=== PATIENT | male | born 1980 | race Caucasian/White ===

== ENCOUNTER 2017-03-21 22:43 | Observation (INO) | payer MEDICAID, OTHER ==
[2017-03-21] MEDS ORDERED: ASPIRIN 81 MG CHEW PO STA (23:33)
[2017-03-21] MEDS ORDERED: MAG HYDROX/AL HYDROX/SIMETH 30 ML, HYOSCYAMINE ELIXIR 10 ML, CIMETIDINE HCL 300 MG, LID... PO STA ×4 (23:33)
--- NOTE | 2017-03-21 23:37 | ED ---
Chest Pain HPI - General Chief Complaint: Chest Pain Stated Complaint: Chest Pain Time Seen by Provider: 03/21/17 22:54 Source: patient Mode of arrival: ambulatory Limitations: no limitations - History of Present Illness Initial Comments: This patient is a 37-year-old man who presents to be evaluated for shortness of breath and substernal pains. The patient states that the symptoms started yesterday around 9 AM, when he was sitting and drinking coffee. He noticed that he felt a little short of breath. Shortly after he noticed he was having some burning substernal pains. Patient did try to lie down and see if things would improve, but states that he felt the pain worsened when he was lying supine. He got up and did some things from and also including mowing the lawn which did seem to help. He states the pains would continue to come and go. Tonight when he was lying down for bed things seemed to worsen so he came here to be evaluated. The patient does state that his father had a heart attack at the age of 45. Patient states that he does smoke usually half pack of cigarettes per day. Denies associated diaphoresis, nausea or vomiting, lightheadedness, palpitations or syncope. MD Complaint: chest pain Onset/Timin -: hour(s) Onset: during rest Pain Location: substernal Pain Radiation: back Severity: mild Quality: other (Burning) Consistency: constant Improves With: movement Worsens With: supine Anginal Symptoms: dyspnea Treatments Prior to Arrival: none - Related Data Home Medications Medication Instructions Recorded Confirmed Ibuprofen [Motrin] 800 mg PO Q6HR PRN 03/21/17 03/21/17 Levothyroxine Sodium 112 mcg PO DAILY 03/21/17 03/21/17 Allergies Allergy/AdvReac Type Severity Reaction Status Date / Time No Known Allergies Allergy Verified 03/21/17 23:07 Review of Systems ROS Statement: Those systems with pertinent positive or pertinent negative responses have been documented in the HPI. ROS Other: All systems not noted in ROS Statement are negative. Constitutional: Denies: fever, chills, weakness Eyes: Denies: vision change Respiratory: Reports: as per HPI, dyspnea. Denies: cough, hemoptysis Cardiovascular: Reports: as per HPI, chest pain. Denies: palpitations, orthopnea, edema, syncope Gastrointestinal: Denies: abdominal pain, nausea, vomiting, melena, hematochezia Genitourinary: Denies: dysuria, hematuria Musculoskeletal: Denies: back pain Skin: Denies: rash Neurological: Denies: headache, weakness, numbness Hematological/Lymphatic: Denies: easy bleeding EKG Findings - EKG Results: EKG: interpreted by ASA BOOGIE, sinus rhythm (Rate 77 bpm), normal axis, normal QRS, normal ST/T, no acute changes - MN, Pacemaker, Normal: Normal tracing: normal tracing Past Medical History Past Medical History: Thyroid Disorder Additional Past Medical History / Comment(s): pericarditis History of Any Multi-Drug Resistant Organisms: None Reported Past Surgical History: Joint Replacement, Orthopedic Surgery Past Psychological History: No Psychological Hx Reported Smoking Status: Former smoker Past Alcohol Use History: Occasional Past Drug Use History: None Reported General Exam Limitations: no limitations General appearance: alert, in no apparent distress Head exam: Present: atraumatic, normocephalic Eye exam: Present: normal appearance. Absent: scleral icterus, conjunctival injection ENT exam: Present: normal oropharynx Neck exam: Present: normal inspection Respiratory exam: Present: normal lung sounds bilaterally. Absent: respiratory distress, wheezes, rales, rhonchi, stridor Cardiovascular Exam: Present: regular rate, normal rhythm, normal heart sounds. Absent: systolic murmur, diastolic murmur, rubs, gallop GI/Abdominal exam: Present: soft. Absent: distended, tenderness, guarding, rebound, rigid, mass, hernia Extremities exam: Present: normal inspection, normal capillary refill. Absent: pedal edema, calf tenderness Back exam: Present: normal inspection. Absent: CVA tenderness (R), CVA tenderness (L) Neurological exam: Present: alert Skin exam: Present: warm, dry, intact, normal color. Absent: rash Course Vital Signs 03/21/17 03/22/17 03/22/17 22:45 00:21 02:30 Temperature 97 F L Pulse Rate 108 H 86 72 Respiratory 20 16 16 Rate Blood Pressure 154/92 137/76 117/70 O2 Sat by Pulse 100 98 97 Oximetry Disposition Clinical Impression: Chest pain Disposition: ADMITTED IP TO THIS HOSP Condition: Good Instructions: Chest Pain (ED) Referrals: Willie Peterson MD [Primary Care Provider] - 1-2 days
[2017-03-21 23:54] LABS: ALT 43 U/L (21-72); AST 25 U/L (17-59); Alkaline Phosphatase 66 U/L (38-126); Amylase 54 U/L (30-110); Anion Gap 12 mmol/L; Basophils # (A) 0.1 k/uL (0-0.2); Basophils % (A) 1 %; Blood Urea Nitrogen 11 mg/dL (9-20); CH 32.3; CHCM 35.5; Calcium 9.6 mg/dL (8.4-10.2); Carbon Dioxide 25 mmol/L (22-30); Chloride 102 mmol/L (98-107); Eosinophils # (A) 0.2 k/uL (0-0.7); Eosinophils % (A) 2 %; Glucose 112 mg/dL (74-99); HCT 44.4 % (39.0-53.0); HDW 2.36; HGB 15.2 gm/dL (13.0-17.5); Luc # (Auto) 0.18; Luc % (Auto) 2; Lymphocytes # (A) 3.7 k/uL (1.0-4.8); Lymphocytes % (A) 37 %; MCH 31.2 pg (25.0-35.0); MCHC 34.2 g/dL (31.0-37.0); MCV 91.2 fL (80.0-100.0); Magnesium 1.9 mg/dL (1.6-2.3); Mean Platelet Volume 8.1; Monocytes # (A) 0.5 k/uL (0-1.0); Monocytes % (A) 5 %; Neutrophils # (A) 5.4 k/uL (1.3-7.7); Neutrophils % (A) 54 %; Non-African American GFR(MDRD) >60 (>60 ml/min/1.73 sqM); Potassium 3.7 mmol/L (3.5-5.1); RBC 4.86 m/uL (4.30-5.90); RDW 12.6 % (11.5-15.5); Sodium 139 mmol/L (137-145); Total Bilirubin 0.5 mg/dL (0.2-1.3); Total Protein 7.4 g/dL (6.3-8.2); WBC (Perox) 9.41
[2017-03-22 00:03] LABS: Partial Thromboplastin Time 25.4 sec (22.0-30.0)
[2017-03-22 00:07] LABS: Creatine Kinase 209 U/L (55-170)
[2017-03-22 00:19] LABS: Creatine Kinase MB 1.7 ng/mL (0.0-2.4); Troponin I <0.012 ng/mL (0.000-0.034)
--- NOTE | 2017-03-22 00:42 | XR ---
EXAM: XR Chest, 2 Views CLINICAL HISTORY: Shortness of breath and burning chest pain for 2 days TECHNIQUE: Frontal and lateral views of the chest. COMPARISON: None FINDINGS: Lungs: Unremarkable. No consolidation. Pleural space: Unremarkable. No pneumothorax. Heart: Unremarkable. No cardiomegaly. Mediastinum: Unremarkable. Bones/joints: Old, healed left midshaft clavicle fracture. No acute osseous abnormalities. IMPRESSION: No acute cardiopulmonary abnormalities.
[2017-03-22] MEDS ORDERED: NITROGLYCERIN SL TABS 0.4 MG TAB SUBLINGUAL PRN (02:56)
[2017-03-22] MEDS ORDERED: IBUPROFEN 800 MG TAB PO PRN (02:59)
[2017-03-22] MEDS ORDERED: SODIUM CHLORIDE 0.9% 1,000 ML IV SCH (03:00)
[2017-03-22 07:15] LABS: Creatine Kinase 180 U/L (55-170)
[2017-03-22 07:27] LABS: Creatine Kinase MB 1.4 ng/mL (0.0-2.4); Troponin I <0.012 ng/mL (0.000-0.034)
[2017-03-22] MEDS ORDERED: LEVOTHYROXINE 112 MCG TAB PO SCH (09:00)
[2017-03-22] MEDS ORDERED: RX INFO: IV CONTRAST WAS GIVEN 1 EACH MISC MISCELLANE PRN (09:53)
--- NOTE | 2017-03-22 10:58 | CT ---
EXAMINATION TYPE: CT angio chest DATE OF EXAM: 03/22/2017 COMPARISON: NONE HISTORY: Patient complains of chest pain and difficulty breathing. Rule out aneurysm. CT DLP: 379.2 mGycm CONTRAST: CTA thoracic aorta with 3-D reconstruction is performed and with IV Contrast, patient injected with 1 00 mL of Omnipaque 350. Contrast CTA of the thoracic aorta was performed from the lung apex through the upper abdomen. 3D re construction imaging obtained at a separate workstation. CT Chest: THORACIC AORTA: No evidence for thoracic aortic aneurysm. Mild atheromatous changes seen. There is n o evidence for dissection or periaortic collection. LUNGS: The lungs are clear and free of infiltrate. Mild dependent basilar atelectasis. Incidental azy gos lobe and fissure. No pulmonary nodule or mass is detected. No pleural effusion or CT evidence of interstitial lung disease. MEDIASTINUM: No evidence for mediastinal hematoma. The heart is not enlarged. No evidence for med iastinal mass or adenopathy. HILAR STRUCTURES: No evidence for mass. No hilar adenopathy is appreciated. OTHER: No significant abnormality. IMPRESSION- No evidence for thoracic aortic aneurysm.
--- NOTE | 2017-03-22 11:10 | HP ---
CHIEF COMPLAINT: Chest pain. HISTORY OF PRESENT ILLNESS: This is a 37-year-old white male with a strong family history of heart disease, developed some shortness of breath, substernal chest pains, heaviness across the chest, somewhat pleuritic in nature. When he was sitting and drinking coffee, he felt some shortness of breath. He has never had this before. It seemed to be worse at night. Due to strong family history, his dad told him to come to the ER at which time he showed up. His dad had a heart attack at age 45 and this megan has been smoking for 15 years, 1/ 2 to 1 pack a day. He appears to be a little bit obese. No diaphoresis, nausea , vomiting, lightheadedness, palpitation, ( ). Does have some abdominal pain with food intake. Denies any heartburn. He is admitted for cardiac workup. D-dimer is negative. Chest x-ray is negative. HOME MEDICATIONS: 1. Levothyroxine 112 mcg daily. 2. Motrin 800 q.6 hours p.r.n. Fourteen-point review of systems negative except for what is mentioned in HPI. EKG shows some sinus rhythm, normal ST-T changes. PAST MEDICAL HISTORY: As mentioned. He had a history of pericarditis, hypothyroidism. SURGERY: Joint replacement orthopedic surgery. PHYSICAL EXAM: Vital signs reviewed. CARDIOVASCULAR: S1 and S2. LUNGS: Clear. GI: Soft. HEMATOLOGY: Negative Homans. PSYCH: Fair mood affect. NEUROLOGIC: Alert and oriented x3. SKIN/INTEGUMENT: Clean, dry, intact. Temp 97, pulse 72 to 108, blood pressure 117 to 150s over 70s to 90s. O2 is 97% to 100% on room air. Admitted with atypical chest pain, suspect nicotine addiction, possible pleurisy. Due to a strong family history, possibly a stress test will be needed prior to discharge. Await cardiology consultation. D-dimer was negative, rules out pulmonary embolism. Chest x-ray is negative as mentioned above. Will check a thyroid level on him. Also, so far his cardiac enzymes are negative. Negative troponins x2. Negative amylase and lipase and negative liver enzymes. MTDD
[2017-03-22 11:39] VITALS: BP 121/75; PULSE 63; RESP 18; TEMP 97.4
[2017-03-22 12:02] LABS: Creatine Kinase 174 U/L (55-170)
[2017-03-22 12:14] LABS: Creatine Kinase MB 1.2 ng/mL (0.0-2.4); Troponin I <0.012 ng/mL (0.000-0.034)
--- NOTE | 2017-03-22 13:28 | ECHOF ---
Referral Reason:chest pain MEASUREMENTS -------- HEIGHT: 177.8 cm WEIGHT: 94.3 kg BP: 98/60 WallScoring: string WallScoring: string FINDINGS -------- Utilizing the standard Artie protocol the patient was exercised for 9 minutes, 0 seconds, achieving a maximum heart rate of 174 , which is 95 % of predicted maximal heart rate. There was physiologic heart rate and blood pressure response to exercise. Max Heart Rate: 174 % of Max Predicted Heart Rate: 95% Rest Heart Rate: 77 Rest BP: 98/60 Max BP: 166/82 Mets Achieved: 10.1 The test was stopped because of fatigue. The test was stopped because the target heart rate was achieved. This level of exercise represents an average exercise tolerance for age. Sinus rhythm. In response to stress, the ECG showed no ST-T wave changes (see exercise report for details). In response to stress, the ECG showed no ST-T wave changes (see exercise report for details). There were normal blood pressure and heart rate responses to stress. LV size, wall thickness and systolic function are normal, with an EF of 60%. Echo images were acquired at peak stress which demonstrated appropriate augmentation of all left ventricular segments with slight decrease in cavity size. CONCLUSIONS -------- 1. The test was stopped because of fatigue. 2. This level of exercise represents an average exercise tolerance for age. 3. In response to stress, the ECG showed no ST-T wave changes (see exercise report for details). 4. No 2D echocardiographic evidence of inducible ischemia to achieved workload. FLAG SIGNALMAN: Terrell Lane RDCS
[2017-03-22 14:11] LABS: Hemoglobin A1C 5.5 % (4.2-6.1)
--- NOTE | 2017-03-22 15:19 | CONS ---
Mr. Markus Chowdhury is a 37-year-old gentleman with a strong family history of premature coronary artery disease and hypothyroidism on levothyroxine. He does not have any hypertension, diabetes or hyperlipidemia. He came into the hospital with complaints of having what he described as a sensation of heaviness and pressure in the chest that seemed to come on spontaneously without much physical activity. He first had some shortness of breath and substernal chest pressure, then had chest pain in the middle of the chest radiating to the back. With these symptoms, he came into the hospital and his troponins are normal. He is resting comfortably without symptoms. He has no diaphoresis, syncope or near syncope. PAST MEDICAL HISTORY: He smokes 1 pack a day. He has a strong family history of CAD. He has hypothyroidism. He does not have any type 2 diabetes, hypertension or hyperlipidemia. Medications at home include ibuprofen p.r.n., levothyroxine 112 mcg daily. Allergies are none. REVIEW OF SYSTEMS: Unremarkable other than above mentioned facts. On examination, blood pressure is 120/70, pulse rate is 68 per minute, regular. HEENT: Unremarkable. Fundus was not examined by me. Neck is supple, there is no JVD. I do not heart a carotid bruit. There is no thyromegaly. Heart exam reveals S1, S2 heard normally without a rub, murmur or gallops. Lungs are clear. Abdomen is soft, nontender. Lower extremities reveal normal pulses, no edema. Central nervous system is normal. EKG reveals sinus mechanism. No acute changes. Laboratory data revealed unremarkable troponins. His TSH is slightly elevated, d-dimer is unremarkable. IMPRESSION: 1. Chest pain syndrome in a patient with a family history of coronary artery disease. He also has a family history of ascending aortic dilatation as well. 2. Rule out aortic aneurysm/dissection. 3. Hypothyroidism. RECOMMENDATIONS: I am recommending a CT angiography to rule out for any ascending aortic pathology and if this is negative, will perform a stress echocardiogram today along with a transthoracic echo. If these are normal, he can be discharged. I discussed my thoughts in detail with the patient. Thank you for much for the consult. CIARA
--- NOTE | 2017-03-22 17:07 | EST ---
Referral Reason:chest pain MEASUREMENTS -------- HEIGHT: 177.8 cm WEIGHT: 94.3 kg BP: 98/60 FINDINGS -------- Utilizing the standard Artie protocol the patient was exercised for 9 minutes, 0 seconds, achieving a maximum heart rate of 174 , which is 95 % of predicted maximal heart rate. There was physiologic heart rate and blood pressure response to exercise. Max Heart Rate: 174 % of Max Predicted Heart Rate: 95% Rest Heart Rate: 77 Rest BP: 98/60 Max BP: 166/82 Mets Achieved: 10.1 The test was stopped because of fatigue. The test was stopped because the target heart rate was achieved. This level of exercise represents an average exercise tolerance for age. Sinus rhythm. In response to stress, the ECG showed no ST-T wave changes (see exercise report for details). In response to stress, the ECG showed no ST-T wave changes (see exercise report for details). There were normal blood pressure and heart rate responses to stress. LV size, wall thickness and systolic function are normal, with an EF of 60%. Echo images were acquired at peak stress which demonstrated appropriate augmentation of all left ventricular segments with slight decrease in cavity size. CONCLUSIONS -------- 1. The test was stopped because of fatigue. 2. This level of exercise represents an average exercise tolerance for age. 3. In response to stress, the ECG showed no ST-T wave changes (see exercise report for details). 4. No 2D echocardiographic evidence of inducible ischemia to achieved workload. STEEL UNLOADER: JULIET Rollins
[2017-03-23] MEDS ORDERED: ASPIRIN 325 MG TAB PO SCH (09:00)
--- NOTE | 2017-04-20 16:36 | CDI ---
Documentation Alex OP Dr Dr Dumont, On your H&P the impression is documented as Atypical Chest Pain. The consulting physician documented Chest Pain Syndrome. Please clarify the most accurate diagnosis for coding purposes in the form of an addendum to the H&P. thank you CIARA
--- NOTE | 2017-04-22 20:37 | DS ---
DATE OF ADMISSION: 03/21/2017 DATE OF DISCHARGE: 03/22/2017 DISCHARGE MEDICATIONS: 1. Levothyroxine 112 mcg daily. 2. Ibuprofen 800 mg q.6 hours p.r.n. DISCHARGE DIAGNOSIS: Chest pain syndrome. Patient was admitted with chest pain, underwent cardiac stress test and stress echo. There were no ST-T changes and no 2-D echocardiographic evidence of ( ) ischemia, at which patient was discharged home to follow up as an outpatient with chest pain syndrome. He also had a chest CTA while being admitted which was negative for any pulmonary embolism or any significant findings. He will follow up as an outpatient. CIARA
== END 2017-03-22 16:42 | disposition home or self-care (01) ==
LOC: EC 22:43 → 6SEL 03-22 02:56
PROVIDERS: ADMIT Family Medicine; ATTEND Family Medicine
DX: R07.89 Other chest pain (principal); R07.2 Precordial pain; F17.210 Nicotine dependence, cigarettes, uncomplicated; R06.02 Shortness of breath; E03.9 Hypothyroidism, unspecified; Z82.49 Family history of ischemic heart disease and other diseases of the circulatory system; Z79.899 Other long term (current) drug therapy
CPT/HCPCS: 99285 ×2; 36415; 94760; 93005; 93017; 93350; 85379; 84439; 80053; 84443; 82150; 83036; 82550 ×2; 82553 ×2; 83690; 83735; 84484 ×2; 85025; 85610; 85730; 71020; 71275; G0378; Q9967

== ENCOUNTER → 2017-09-26 | Outpatient (CLI) | payer MEDICAID ==
--- NOTE | 2017-09-26 23:02 | MR ---
EXAMINATION TYPE: MR tspine/lspine wo con DATE OF EXAM: 09/26/2017 COMPARISON: Lumbar spine x-ray March 02, 2012. CT lumbar spine March 27, 2012. CTA chest March 22, 2017. HISTORY: Mid and Low back pain x7 years TECHNIQUE: Multiplanar, multisequence imaging of the thoracic and lumbar spine are performed without IV contrast. FINDINGS: T-SPINE: FINDINGS: Spinal cord shows normal course, caliber, and signal as it courses the thoracic spine. Ve rtebral body heights are satisfactory. Coronal images show slight scoliotic curvature unchanged from recent CT centered in the upper thoracic spine. There is disc desiccation with posterior disc herniat ion effacing the anterior thecal sac at T8-T9 level on sagittal images. There is hemangioma posterior left T11 vertebral sagittal image 4. Bone marrow signal intensity is otherwise preserved. No signifi cant spurring is seen. Multilevel tiny posterior disc herniations in the cervical spine are seen on s agittal T2 counting sequence. Review of the axial images shows confirms right paracentral disc protrusion effacing anterolateral th ecal sac on axial image 16 series 601. No additional disc herniations are seen. Visualized thorax is unremarkable. IMPRESSION: Disc herniation T8-T9 level noted. L-SPINE: Sagittal images of the lumbar spine show vertebral body heights and alignment to appear satisfactory. There is disc desiccation noted at L2-L3 and L5-S1 levels. The intervertebral discs otherwise demons trate normal heights and hydration. Posterior disc herniation L5-S1 level is seen. Increased signal p osteriorly consistent with annular tear is noted at this level. The conus medullaris is satisfactory in position and signal ending at L1-L2 disc space. The bone marrow signal intensity is within eva l limits. No significant spurring is seen. Axial images show the T12-L1 and L1-L2 levels to appear within normal limits. Axial images at L2-L3 level show mild broad disc bulge minimally effacing the anterior thecal sac on axial image 20, bilateral neural foramina are patent. Axial images at L3-L4 level and L4-L5 level are felt within normal limits. Axial images at L5-S1 level shows central disc protrusion but the spinal canal is preserved. Bilatera l neural foramina are patent. No suspicious retroperitoneal findings are seen. IMPRESSION: Degenerative changes L2-L3 and L5-S1 level as noted above.
== END | disposition home or self-care (01) ==
LOC: RADMRIMAIN 19:27
PROVIDERS: ATTEND Psychiatry & Neurology Neurology
DX: M47.817 Spondylosis without myelopathy or radiculopathy, lumbosacral region (principal); M51.24 Other intervertebral disc displacement, thoracic region; Z88.8 Allergy status to other drugs, medicaments and biological substances
CPT/HCPCS: 72146; 72148

== ENCOUNTER 2019-07-24 20:08 | Emergency (ER) | payer MEDICAID, BC ==
[2019-07-24] MEDS ORDERED: SODIUM CHLORIDE 0.9% 1,000 ML IV STA (20:53)
[2019-07-24] MEDS ORDERED: FAMOTIDINE 20 MG/2 ML VIAL IV STA (20:55)
[2019-07-24] MEDS ORDERED: MAG HYDROX/AL HYDROX/SIMETH 30 ML, HYOSCYAMINE ELIXIR 10 ML, LIDOCAINE VISCOUS 2% 10 ML PO STA ×3 (20:55)
--- NOTE | 2019-07-24 20:57 | ED ---
General Adult HPI - General Chief complaint: Abdominal Pain Stated complaint: Chest pain, abd pain Time Seen by Provider: 07/24/19 20:18 Source: patient, RN notes reviewed Mode of arrival: ambulatory Limitations: no limitations - History of Present Illness Initial comments: 39-year-old male with a past medical history pericarditis presents to the emerge ncy department for a chief complaint of abdominal pain. Patient states this has been ongoing for about 10 days. States that it seems to worsen after he eats and that this causes bloating. States he gets a gnawing pain after he eats. States that it starts in his epigastric area and then becomes a burning throughout his chest but it becomes a squeezing pain. States the pain is mostly in the upper abdomen and radiates to the left upper abdomen. Denies any back pain. Denies any lower abdominal pain. Denies nausea or vomiting. States bowel movements are normal and he is passing gas. He does admit that it seems to worsen if he lies down or at night. States he has been trying Tums but it does not seem to be helping. Pt is a former smoker, stopped about 1.5 years ago. He denies any history of hypertension or hypercholesterolemia. Patient has no other complaints at this time including shortness of breath, nausea or vomiting, headache, or visual changes. - Related Data Home Medications Medication Instructions Recorded Confirmed Levothyroxine Sodium [Synthroid] 125 mcg PO DAILY 07/24/19 07/24/19 Previous Rx's Medication Instructions Recorded Pantoprazole [Protonix] 40 mg PO DAILY #7 tablet. 07/24/19 Allergies Allergy/AdvReac Type Severity Reaction Status Date / Time No Known Allergies Allergy Verified 07/24/19 23:29 Review of Systems ROS Statement: Those systems with pertinent positive or pertinent negative responses have been documented in the HPI. ROS Other: All systems not noted in ROS Statement are negative. Past Medical History Past Medical History: Thyroid Disorder Additional Past Medical History / Comment(s): pericarditis History of Any Multi-Drug Resistant Organisms: None Reported Past Surgical History: Joint Replacement, Orthopedic Surgery Additional Past Surgical History / Comment(s): right hip replacement, alphonso in left femur, left tibia alphonso Past Anesthesia/Blood Transfusion Reactions: No Reported Reaction Past Psychological History: No Psychological Hx Reported Smoking Status: Current every day smoker Past Alcohol Use History: Occasional Past Drug Use History: None Reported - Past Family History Father Family Medical History: Myocardial Infarction (PA) Additional Family Medical History / Comment(s): Father had for PA in 40's, had 4 stents placed and angioplasty General Exam Limitations: no limitations General appearance: alert, in no apparent distress Head exam: Present: atraumatic, normocephalic, normal inspection Eye exam: Present: normal appearance, PERRL, EOMI. Absent: scleral icterus, conjunctival injection, periorbital swelling ENT exam: Present: normal exam, mucous membranes moist Neck exam: Present: normal inspection, full ROM. Absent: tenderness, meningismus, lymphadenopathy Respiratory exam: Present: normal lung sounds bilaterally. Absent: respiratory distress, wheezes, rales, rhonchi, stridor Cardiovascular Exam: Present: regular rate, normal rhythm, normal heart sounds. Absent: systolic murmur, diastolic murmur, rubs, gallop, clicks GI/Abdominal exam: Present: soft, tenderness (Tenderness noted in the epigastric area. There is some left upper quadrant tenderness as well. No lower abdominal tenderness.), normal bowel sounds. Absent: distended, guarding, rebound, rigid Extremities exam: Present: normal capillary refill (Radial pulses 2+ and equal bilaterally) Back exam: Absent: CVA tenderness (R), CVA tenderness (L) Course Vital Signs 07/24/19 20:14 Temperature 97.9 F Pulse Rate 81 Respiratory 20 Rate Blood Pressure 157/87 O2 Sat by Pulse 99 Oximetry EKG Findings - EKG Comments: EKG Findings:: Normal sinus rhythm, ventricular rate 80, OK interval 156, QTC 419, no evidence of ST elevation, also reviewed by Dr. Guzmán Medical Decision Making - Medical Decision Making Patient had a CTA and 2017 that showed no thoracic aneurysm. He had a normal stress test and echo in 2017 as well. Vitals are stable. Patient is afebrile. HPI and physical exam are consistent with gastritis versus gallbladder dysfunction given the epigastric pain, pain worsening with eating, and associated bloating and burning pain. CBC CMP was obtained which were unremarkable. Troponin was negative. If this was ACS relat ed it would be expected to be elevated after 10 days of symptoms, therefore repeat troponin was not required. Chest and abdomen x-rays are unremarkable. Ultrasound of the right upper quadrant shows a contracted gallbladder without gallstones or dilated ducts. No focal or liver deficit. She was given GI cocktail and Pepcid and did have significant improvement in symptoms. At this point patient's pain is consistent with gastritis versus colitis or dysfunction. I did recommend he start Protonix for the next week. I recommend he follow up with GI in the next 1-2 days. He will return here if he has any worsening symptoms.I discussed this case with attending Dr. Guzmán who agrees with this assessment and treatment plan. - Lab Data Result diagrams: 07/24/19 21:10 07/24/19 21:10 Lab Results 07/24/19 07/24/19 07/24/19 Range/Units 21:10 21:10 21:10 WBC 8.2 (3.8-10.6) k/uL RBC 4.62 (4.30-5.90) m/uL Hgb 14.5 (13.0-17.5) gm/dL Hct 42.0 (39.0-53.0) % MCV 90.8 (80.0-100.0) fL MCH 31.4 (25.0-35.0) pg MCHC 34.5 (31.0-37.0) g/dL RDW 11.8 (11.5-15.5) % Plt Count 204 (150-450) k/uL Neutrophils % 55 % Lymphocytes % 35 % Monocytes % 5 % Eosinophils % 1 % Basophils % 2 % Neutrophils # 4.6 (1.3-7.7) k/uL Lymphocytes # 2.9 (1.0-4.8) k/uL Monocytes # 0.4 (0-1.0) k/uL Eosinophils # 0.1 (0-0.7) k/uL Basophils # 0.1 (0-0.2) k/uL PT (9.0-12.0) sec INR (<1.2) APTT (22.0-30.0) sec Sodium 139 (137-145) mmol/L Potassium 3.8 (3.5-5.1) mmol/L Chloride 105 (98-107) mmol/L Carbon Dioxide 26 (22-30) mmol/L Anion Gap 8 mmol/L BUN 12 (9-20) mg/dL Creatinine 0.93 (0.66-1.25) mg/dL Est GFR (CKD-EPI)AfAm >90 (>60 ml/min/1.73 sqM) Est GFR (CKD-EPI)NonAf >90 (>60 ml/min/1.73 sqM) Glucose 118 H (74-99) mg/dL Plasma Lactic Acid Alber 1.0 (0.7-2.0) mmol/L Calcium 9.1 (8.4-10.2) mg/dL Total Bilirubin 0.5 (0.2-1.3) mg/dL AST 27 (17-59) U/L ALT 32 (21-72) U/L Alkaline Phosphatase 61 (38-126) U/L Troponin I (0.000-0.034) ng/mL Total Protein 7.1 (6.3-8.2) g/dL Albumin 4.3 (3.5-5.0) g/dL Amylase 42 (30-110) U/L Lipase 50 (23-300) U/L 07/24/19 07/24/19 Range/Units 21:10 21:10 WBC (3.8-10.6) k/uL RBC (4.30-5.90) m/uL Hgb (13.0-17.5) gm/dL Hct (39.0-53.0) % MCV (80.0-100.0) fL MCH (25.0-35.0) pg MCHC (31.0-37.0) g/dL RDW (11.5-15.5) % Plt Count (150-450) k/uL Neutrophils % % Lymphocytes % % Monocytes % % Eosinophils % % Basophils % % Neutrophils # (1.3-7.7) k/uL Lymphocytes # (1.0-4.8) k/uL Monocytes # (0-1.0) k/uL Eosinophils # (0-0.7) k/uL Basophils # (0-0.2) k/uL PT 10.1 (9.0-12.0) sec INR 0.9 (<1.2) APTT 25.9 (22.0-30.0) sec Sodium (137-145) mmol/L Potassium (3.5-5.1) mmol/L Chloride (98-107) mmol/L Carbon Dioxide (22-30) mmol/L Anion Gap mmol/L BUN (9-20) mg/dL Creatinine (0.66-1.25) mg/dL Est GFR (CKD-EPI)AfAm (>60 ml/min/1.73 sqM) Est GFR (CKD-EPI)NonAf (>60 ml/min/1.73 sqM) Glucose (74-99) mg/dL Plasma Lactic Acid Alber (0.7-2.0) mmol/L Calcium (8.4-10.2) mg/dL Total Bilirubin (0.2-1.3) mg/dL AST (17-59) U/L ALT (21-72) U/L Alkaline Phosphatase (38-126) U/L Troponin I <0.012 (0.000-0.034) ng/mL Total Protein (6.3-8.2) g/dL Albumin (3.5-5.0) g/dL Amylase (30-110) U/L Lipase (23-300) U/L Disposition Clinical Impression: Abdominal pain Disposition: HOME SELF-CARE Condition: Good Instructions (If sedation given, give patient instructions): Abdominal Pain (ED) Additional Instructions: Please take Protonix as directed. Please follow-up with GI in 1-2 days for possible scope or HIDA scan. Please return to the emergency department if you have any worsening symptoms. Prescriptions: Pantoprazole [Protonix] 40 mg PO DAILY #7 tablet.dr Is patient prescribed a controlled substance at d/c from ED?: No Referrals: Willie Peterson MD [Primary Care Provider] - 1-2 days Chloe Serrano MD [STAFF PHYSICIAN] - 1-2 days Time of Disposition: 23:31
[2019-07-24 21:17] LABS: Basophils # (A) 0.1 k/uL (0-0.2); Basophils % (A) 2 %; Eosinophils # (A) 0.1 k/uL (0-0.7); Eosinophils % (A) 1 %; HGB 14.5 gm/dL (13.0-17.5); Lymphocytes # (A) 2.9 k/uL (1.0-4.8); Lymphocytes % (A) 35 %; MCH 31.4 pg (25.0-35.0); MCHC 34.5 g/dL (31.0-37.0); MCV 90.8 fL (80.0-100.0); Mean Platelet Volume 7.7; Monocytes # (A) 0.4 k/uL (0-1.0); Monocytes % (A) 5 %; Neutrophils # (A) 4.6 k/uL (1.3-7.7); Neutrophils % (A) 55 %; Platelet Count 204 k/uL (150-450); RBC 4.62 m/uL (4.30-5.90); RDW 11.8 % (11.5-15.5); WBC 8.2 k/uL (3.8-10.6)
[2019-07-24 21:27] LABS: INR 0.9 (<1.2); Partial Thromboplastin Time 25.9 sec (22.0-30.0); Prothrombin Time 10.1 sec (9.0-12.0)
[2019-07-24 21:28] LABS: ALT 32 U/L (21-72); AST 27 U/L (17-59); African American GFR (CKD) >90 (>60 ml/min/1.73 sqM); Albumin 4.3 g/dL (3.5-5.0); Alkaline Phosphatase 61 U/L (38-126); Amylase 42 U/L (30-110); Anion Gap 8 mmol/L; Blood Urea Nitrogen 12 mg/dL (9-20); Calcium 9.1 mg/dL (8.4-10.2); Carbon Dioxide 26 mmol/L (22-30); Chloride 105 mmol/L (98-107); Glucose 118 mg/dL (74-99); Non-African American GFR(CKD) >90 (>60 ml/min/1.73 sqM); Potassium 3.8 mmol/L (3.5-5.1); Sodium 139 mmol/L (137-145); Total Bilirubin 0.5 mg/dL (0.2-1.3); Total Protein 7.1 g/dL (6.3-8.2)
--- NOTE | 2019-07-24 21:36 | XR ---
EXAMINATION TYPE: XR chest 2V DATE OF EXAM: 07/24/2019 COMPARISON: 03/22/2017 HISTORY: Chest pain TECHNIQUE: Frontal and lateral views of the chest are obtained. FINDINGS: Heart and mediastinum are normal. Lungs are clear. Diaphragm is normal. Bony thorax appear s normal. IMPRESSION: Normal chest. No change.
--- NOTE | 2019-07-24 21:37 | XR ---
EXAMINATION TYPE: XR abdomen 2V DATE OF EXAM: 07/24/2019 COMPARISON: NONE HISTORY: Chest pain TECHNIQUE: 3 views FINDINGS: Supine and upright views were obtained and show a normal bowel gas pattern. There is no sig n of intestinal obstruction or pneumoperitoneum. Fecal pattern is normal. Lung bases are clear. There are no pathologic calcifications. There is right hip prosthesis. There is intramedullary alphonso in the left femur. IMPRESSION: Nonacute abdomen.
--- NOTE | 2019-07-24 22:30 | US ---
EXAMINATION TYPE: US abdomen limited DATE OF EXAM: 07/24/2019 COMPARISON: NONE CLINICAL HISTORY: RUQ. Abdominal pain x 10 days. EXAM MEASUREMENTS: Liver Length: 16.4 cm Gallbladder Wall: Not clearly distinguished CBD: 0.45 cm Right Kidney: 11.7 x 6.3 x 4.8 cm Limited due to gas and body habitus. Pancreas: Not well seen Liver: Appears to have an increased echogenicity. Gallbladder: Appears contracted. Limited evaluation. Evidence for sonographic Obrien's sign: No CBD: Appears to be wnl Right Kidney: No hydronephrosis or masses seen IMPRESSION: Gallbladder is contracted. No gallstones or dilated ducts. No focal liver defect.
[2019-07-24 23:55] VITALS: BP 122/74; PULSE 67; RESP 18; TEMP 98.4
== END 2019-07-24 23:52 | disposition home or self-care (01) ==
LOC: EC 20:08
DX: R10.13 Epigastric pain (principal); K82.8 Other specified diseases of gallbladder; R07.9 Chest pain, unspecified; R10.12 Left upper quadrant pain; R14.0 Abdominal distension (gaseous); E07.9 Disorder of thyroid, unspecified; Z87.891 Personal history of nicotine dependence; Z79.890 Hormone replacement therapy
CPT/HCPCS: 36415; 71046; 74019; 76705; 80053; 82150; 83605; 83690; 84484; 85025; 85610; 85730; 93005; 96361; 96374; 99284

== ENCOUNTER 2019-11-22 07:07 | Day surgery (SDC) | payer OTHER, MEDICAID ==
[2019-11-21 09:27] VITALS: BMI 31.5
[~2019-11-22 07:07] MED LIST: LACTATED RINGERS 1,000 ML IV SCH; LIDOCAINE 1% (10MG/ML) FOR IV START INTRADERMA PRN
[2019-11-22 07:44] VITALS: TEMP 98.4
[2019-11-22] MEDS ORDERED: PROPOFOL 10 MG/ML 20 ML VIAL IV ONE (08:14)
[2019-11-22] MEDS ORDERED: LIDOCAINE 1% INJ 10MG/ML (20 ML MDV) ONE (08:14)
--- NOTE | 2019-11-22 08:37 | P.PCN ---
Date of Procedure: 11/22/19 Description of Procedure: BRIEF HISTORY: Patient is a 39-year-old male with a medical history of epigastric abdominal pain who presents for outpatient EGD. The patient has had similar complaints of epigastric burning. He does report improvement of symptoms on Protonix therapy but stopped the medication as it was causing dizziness. PROCEDURE PERFORMED: Esophagogastroduodenoscopy with biopsy. PREOPERATIVE DIAGNOSIS: Epigastric abdominal pain. ESTIMATED BLOOD LOSS: Minimal. IV sedation per anesthesia. PROCEDURE: After informed consent was obtained, the patient was brought into the endoscopy unit. IV sedation was administered by Anesthesia under continuous monitoring. Initially the Olympus GIF-190 video endoscope was inserted into the mouth. Esophagus intubated without any difficulty. It was gradually advanced into the stomach and duodenum and carefully examined. The bulb and the second part of the duodenum appeared normal, with biopsies taken to rule out celiac sprue. The scope at this time was withdrawn to the stomach, adequately insufflated with air, and upon careful examination, mucosa of the antrum, body, cardia and the fundus appeared normal except for some mild scattered erythema in the antrum and body suggestive of mild gastritis with biopsies taken. The scope was then withdrawn into the esophagus. The GE junction was located at 41 cm from the incisors and was biopsied to rule out reflux esophagitis. The esophagus appeared normal. There were no erosions or ulcerations seen and the patient tolerated the procedure well. IMPRESSION: 1. Mild gastritis antrum and body, biopsied. 2. Biopsies of the GE junction and duodenum. RECOMMENDATIONS: The findings of this examination were discussed with the patient and his partner. Okay to resume diet. Okay to resume medications. Await pathology from biopsies. Follow up with gastroenterology clinic as previously scheduled.
[2019-11-22 08:41] VITALS: RESP 16
[2019-11-22 08:50] VITALS: BP 122/86; PULSE 77
== END 2019-11-22 09:01 ==
LOC: ORWHC2ENDO 07:07
PROVIDERS: ATTEND Internal Medicine
DX: K29.50 Unspecified chronic gastritis without bleeding (principal); E89.0 Postprocedural hypothyroidism; K21.9 Gastro-esophageal reflux disease without esophagitis; Z87.891 Personal history of nicotine dependence; Z79.890 Hormone replacement therapy; Z98.890 Other specified postprocedural states
CPT/HCPCS: 88305; 43239; J2001; J2704

== ENCOUNTER → 2020-11-13 | Outpatient (CLI) | payer OTHER, MEDICAID ==
[2020-11-13 12:59] LABS: HCT 43.2 % (39.0-53.0); HGB 15.3 gm/dL (13.0-17.5); MCH 31.9 pg (25.0-35.0); MCHC 35.5 g/dL (31.0-37.0); MCV 90.1 fL (80.0-100.0); Mean Platelet Volume 8.3; Platelet Count 207 k/uL (150-450); RDW 11.6 % (11.5-15.5)
[2020-11-13 13:24] LABS: African American GFR (CKD) >90 (>60 ml/min/1.73 sqM); Anion Gap 12 mmol/L; Blood Urea Nitrogen 16 mg/dL (9-20); Carbon Dioxide 27 mmol/L (22-30); Chloride 96 mmol/L (98-107); Non-African American GFR(CKD) >90 (>60 ml/min/1.73 sqM); Potassium 4.7 mmol/L (3.5-5.1); Sodium 135 mmol/L (137-145)
== END | disposition home or self-care (01) ==
LOC: LABPAT 11:53
PROVIDERS: ATTEND Internal Medicine
DX: Z01.812 Encounter for preprocedural laboratory examination (principal); R07.9 Chest pain, unspecified
CPT/HCPCS: 80051; 82565; 84520; 85027

== ENCOUNTER 2020-11-17 08:57 | Day surgery (SDC) | payer OTHER, MEDICAID ==
[2020-11-13 10:41] VITALS: BMI 31.0
[2020-11-17 09:42] VITALS: RESP 18; TEMP 97.4
[2020-11-17] MEDS ORDERED: SODIUM CHLORIDE 0.9% 1,000 ML IV ONE (09:42)
[2020-11-17] MEDS ORDERED: VERAPAMIL 2.5 MG/ML 2 ML AMP ONE (09:52)
[2020-11-17] MEDS ORDERED: LIDOCAINE 1% INJ 10MG/ML (20 ML MDV) ONE (09:52)
[2020-11-17] MEDS ORDERED: fentaNYL (PF) 50 MCG/ML 2 ML AMP ONE (10:01)
[2020-11-17] MEDS: MIDAZOLAM 2 MG/2 ML VIAL IV ONE ×2 (10:10→10:16)
[2020-11-17] MEDS ORDERED: fentaNYL (PF) 50 MCG/ML 2 ML AMP IV ONE (10:10)
[2020-11-17] MEDS ORDERED: LIDOCAINE 1% INJ 10MG/ML (20 ML MDV) SQ ONE (10:11)
[2020-11-17] MEDS ORDERED: VERAPAMIL SYRINGE (5 MG/10 ML) INTRAARTER ONE (10:15)
[2020-11-17] MEDS ORDERED: IOPAMIDOL-370 125ML BTL INJ ONE (10:26)
[2020-11-17] MEDS ORDERED: RX INFO: IV CONTRAST WAS GIVEN 1 EACH MISC MISCELLANE PRN (10:47)
--- NOTE | 2020-11-17 10:47 | P.CARDCATH ---
Description of Procedure: PROCEDURES PERFORMED: Left heart catheterization, bilateral coronary angiography INDICATION: Class 3-4 angina concerning for unstable angina, family history of coronary artery disease HISTORY: Patient is a pleasant 40-year-old male with history of hypertension, prior tobacco abuse, hemangioma, and strong family history of coronary artery disease who presents for heart catheterization. Patient has been having worsened chest pain occasionally with exertion and occasionally at rest with prior workup including echocardiogram and stress test unrevealing. Due to persistent symptoms and risk factors a heart catheterization was offered and patient was agreeable. CONSENT:I have discussed the risks, benefits and alternative therapies for the above-mentioned procedure and for both sedation/analgesia as well as necessary blood product administration, if indicated, as they pertain to this patient. The patient has indicated understanding and acceptance of the risks and procedures discussed. PROCEDURE: After the risks, benefits and alternatives of the above mentioned procedure explained in detail with the patient, informed consent was obtained. Patient was taken to the catheterization lab and prepped and draped in usual fashion. 1% lidocaine was used to anesthetize the right radial artery. A 6- Marshallese sheath was placed in the right radial artery using modified Seldinger technique. Left coronary angiography was performed with a 5-Marshallese JL 3.5 catheter and right coronary angiography was performed with a 5-Marshallese JR5 catheter in various views. A 5-Marshallese FR5 catheter was inserted into the left ventricle and pressure measurements were obtained. The right radial sheath was removed and a TR band was placed with hemostasis achieved. The patient tolerated the procedure well. Patient was transported back to the post catheterization holding area in stable condition. Conscious Sedation: Patient was monitored under the direct supervision of vision of myself for conscious sedation using Versed and fentanyl for a total duration of 16 minutes HEMODYNAMICS: Aorta: 132/76 LV: 128/2, LVEDP 10mmHg SELECTIVE CORONARY ARTERIOGRAPHY: LEFT MAIN: The left main is a large caliber, very short vessel which bifurcates into the LAD and circumflex. There is no significant stenosis. LEFT ANTERIOR DESCENDING CORONARY ARTERY: LAD is a large caliber vessel which wraps around to the apex. There is no significant stenosis. LEFT CIRCUMFLEX CORONARY ARTERY: Left circumflex is a moderate caliber vessel with ostial 10% stenosis and otherwise is normal. RIGHT CORONARY ARTERY: The right coronary artery is a large caliber vessel which gives off a PDA and PLV branch and is the dominant vessel. There is no significant stenosis. FINAL IMPRESSION: 1. Normal coronary arteries as described above with only minimal 10% ostial circumflex stenosis. 2. Normal left sided filling pressures. PLAN: 1. Aggressive risk factor modification per most recent ACC/AHA guidelines. 2. Follow-up in the office in 1-2 weeks.
[2020-11-17] MEDS ORDERED: ACETAMINOPHEN TAB 500 MG TAB PO ONE (12:30)
[2020-11-17 14:33] VITALS: PULSE 70
[2020-11-17 15:55] VITALS: BP 118/66
== END 2020-11-17 15:20 | disposition home or self-care (01) ==
LOC: CATHCVL 08:57
PROVIDERS: ATTEND Internal Medicine
DX: I25.10 Atherosclerotic heart disease of native coronary artery without angina pectoris (principal); I10 Essential (primary) hypertension; Z87.891 Personal history of nicotine dependence; Z86.79 Personal history of other diseases of the circulatory system; G89.29 Other chronic pain; M54.9 Dorsalgia, unspecified; E03.9 Hypothyroidism, unspecified; Z82.49 Family history of ischemic heart disease and other diseases of the circulatory system; D18.09 Hemangioma of other sites; E78.5 Hyperlipidemia, unspecified; Z79.82 Long term (current) use of aspirin; Z79.890 Hormone replacement therapy; Z79.899 Other long term (current) drug therapy
CPT/HCPCS: 93458; C1887; C1769; C1894; J2250; J2001; J3010; J1644; Q9967

== ENCOUNTER → 2020-12-22 | Outpatient (CLI) | payer OTHER, MEDICAID ==
--- NOTE | 2020-12-23 06:38 | MR ---
EXAMINATION TYPE: MR cspine/lspine wo con DATE OF EXAM: 12/22/2020 COMPARISON: MRI Lumbar spine 09/26/2017. HISTORY: Neck pain and low back pain down right leg for 15 years. TECHNIQUE: Multiplanar, multisequence imaging of the cervical and lumbar spine are performed without IV contrast. FINDINGS: C-SPINE: FINDINGS: Sagittal images of the cervical spine show the craniocervical junction to appear within nor mal limits. The cervical and upper thoracic spinal cord is normal in caliber and signal. Vertebral alignment is straightened. Slight grade 1 retrolisthesis C3 on C4, C4 on C5, and C5 on C6. Mild disc space narrowing C4-C5 level with heterogeneous more thick 1 endplate changes. Mild disc space narrowi ng C5-C6 level with heterogeneous port type II endplate changes posteriorly. Axial images show C2-C3 level to appear within normal limits. Axial images at C3-C4 level show spondylolisthesis effacing the anterior thecal sac at the L3 level, patent bilateral neural foramina. Axial images at C4-C5 level show spondylolisthesis and broad based left paracentral disc protrusion, there is effacement of the anterior thecal sac, there is some uncovertebral facet arthropathy and mil d bilateral neural foraminal narrowing. Axial images at C5-C6 level with spondylolisthesis with mild broad-based posterior disc protrusion an d mild uncovertebral facet arthropathy, there is mild effacement anterior thecal sac and bilateral ne ural foraminal narrowing. Axial images at C6-C7 and C7-T1 levels appear within normal limits. Incidental note is made of partial visualization of suspected Azygos lobe/fissure. IMPRESSION: Multilevel spondylolisthesis and degenerative changes C3-C4 through C5-C6 levels as detai led above. L-SPINE: Sagittal images of the lumbar spine show vertebral body heights and alignment to remain satisfactory. There is disc desiccation redemonstrated at L2-L3 and L5-S1 levels. New Mild disc desiccation at L1 -L2 level. Mild disc space narrowing L2-L3 level redemonstrated. The conus medullaris remains satisfa ctory in position and signal ending at L1-L2 disc space. Small hemangioma right L5 level redemonstrat ed sagittal image 10. Mild multilevel anterior spurring. Axial images show the T12-L1 and L1-L2 levels to remain within normal limits. Axial images at L2-L3 level show mild broad disc bulge minimally effacing the anterior thecal sac on axial image 20, bilateral neural foramina are patent. No significant change from prior. Axial images at L3-L4 level show mild to moderate broad disc bulge with minimal effacement of anterio r spinal canal, mild bilateral anterior inferior neural foraminal narrowing. Findings new from prior study. Axial images at L4-L5 redemonstrate mild broad disc bulge. Spinal canal is preserved and bilateral ne ural foramina are patent. Axial images at L5-S1 level redemonstrate central disc protrusion and the annular tear but the spinal canal is preserved as there is increased epidural fat at this level. Mild facet arthropathy bilatera lly. Bilateral neural foramina remain patent. No suspicious retroperitoneal findings are seen. IMPRESSION: Multilevel degenerative changes mid to lower lumbar spine as detailed above. Some interva l degenerative progression from 2018 study noted.
== END | disposition home or self-care (01) ==
LOC: RADMRIMAIN 17:58
PROVIDERS: ATTEND Family Medicine
DX: M51.27 Other intervertebral disc displacement, lumbosacral region (principal); M47.816 Spondylosis without myelopathy or radiculopathy, lumbar region
CPT/HCPCS: 72141; 72148